=== PATIENT | male | born 1945 | race Caucasian/White ===

== ENCOUNTER 2018-06-21 18:32 | Emergency (ER) | payer MEDICARE, OTHER ==
[2018-06-21 18:44] VITALS: RESP 18
[2018-06-21] MEDS ORDERED: methylPREDNISolone SOD SUCCI 125 MG/2 ML VIAL IV STA (18:57)
[2018-06-21] MEDS ORDERED: FAMOTIDINE 20 MG/2 ML VIAL IV STA (18:57)
--- NOTE | 2018-06-21 19:16 | ED ---
Allergic Reaction HPI - General Chief complaint: Allergic Reaction Stated complaint: BEE STING, ALLERGIC REACTION Time Seen by Provider: 06/21/18 18:53 Source: patient, RN notes reviewed Mode of arrival: wheelchair Limitations: no limitations - History of Present Illness Initial Comments: This a 73-year-old male presents emergency Department with chief complaint of a bee sting to his left hand. Patient states that he was stung approximately one hour prior arrival. Patient states that every time he said bee stings in the past that he gets in reaction and the nature of nausea, localized swelling. Patient states he has an EpiPen but states that it's 3 years old and did not use it. He states he has never had to use an EpiPen for ALLERGIC reaction. Patient states that he's had reaction to Benadryl in the past so he states that he is ALLERGIC to Benadryl. Patient did not take anything else for the symptoms. Patient denies any chest pain, headache, dizziness, fever, chills, difficult breathing comfortably swelling. - Related Data Previous Rx's Medication Instructions Recorded predniSONE 50 mg PO DAILY #3 tab 06/21/18 Allergies Allergy/AdvReac Type Severity Reaction Status Date / Time bee venom protein (honey bee) Allergy Swelling Verified 06/21/18 18:39 Review of Systems ROS Statement: Those systems with pertinent positive or pertinent negative responses have been documented in the HPI. ROS Other: All systems not noted in ROS Statement are negative. Past Medical History Past Medical History: Renal Disease, Thyroid Disorder Additional Past Medical History / Comment(s): klippel feityson (vasacluar disease) History of Any Multi-Drug Resistant Organisms: None Reported Past Surgical History: Orthopedic Surgery, Tonsillectomy Additional Past Surgical History / Comment(s): bone scraping from hip bone to hip bone, 2 skin graphs Past Psychological History: No Psychological Hx Reported Smoking Status: Former smoker Past Alcohol Use History: None Reported Past Drug Use History: None Reported General Exam Limitations: no limitations General appearance: alert, in no apparent distress Head exam: Present: atraumatic, normocephalic, normal inspection ENT exam: Present: normal exam, normal oropharynx, mucous membranes moist Neck exam: Present: normal inspection. Absent: tenderness, meningismus, lymphadenopathy Respiratory exam: Present: normal lung sounds bilaterally. Absent: respiratory distress, wheezes, rales, rhonchi, stridor Cardiovascular Exam: Present: regular rate, normal rhythm, normal heart sounds. Absent: systolic murmur, diastolic murmur, rubs, gallop, clicks Skin exam: Present: warm, dry, intact, normal color, rash (Left hand there is small area of erythema with centralized lesion where he locates a bee sting.) Course Vital Signs 06/21/18 06/21/18 18:39 19:25 Temperature 98.7 F Pulse Rate 89 83 Respiratory 18 18 Rate Blood Pressure 138/80 121/63 O2 Sat by Pulse 96 96 Oximetry Medical Decision Making - Medical Decision Making 73-year-old male presented unresponsive, with chief complaint of ALLERGIC reaction. Patient was given Solu-Medrol, Pepcid has had no worsening retractions. He states he does feel improved. Patient had no definitive renal difficulty swelling. Patient refuses Benadryl as he states he is ALLERGIC to it. Patient we discharged with prednisone for 3 days and return for any worsening symptoms. Disposition Clinical Impression: Allergic reaction to insect sting Disposition: HOME SELF-CARE Condition: Stable Instructions: Insect Bite or Sting (ED) Additional Instructions: Please return to the Emergency Department if symptoms worsen or any other concerns. Prescriptions: predniSONE 50 mg PO DAILY #3 tab Is patient prescribed a controlled substance at d/c from ED?: No Referrals: Nonstaff,Physician [Primary Care Provider] - 1-2 days Time of Disposition: 20:22
[2018-06-21 21:35] VITALS: BP 153/78; PULSE 74; TEMP 97.4
== END 2018-06-21 21:35 | disposition home or self-care (01) ==
LOC: EC 18:32
DX: T63.441A Toxic effect of venom of bees, accidental (unintentional), initial encounter (principal); Z87.891 Personal history of nicotine dependence; Z91.030 Bee allergy status; Z88.8 Allergy status to other drugs, medicaments and biological substances
CPT/HCPCS: 99283; 96374; 96375; J2930

== ENCOUNTER 2018-07-15 21:41 | Emergency (ER) | payer MEDICARE, OTHER ==
[2018-07-15 22:02] VITALS: BP 144/79; PULSE 81; RESP 18; TEMP 98.1
--- NOTE | 2018-07-15 22:25 | ED ---
Lower Extremity Injury HPI - General Chief Complaint: Extremity Injury, Lower Stated Complaint: knee pain Time Seen by Provider: 07/15/18 22:16 Source: patient Mode of arrival: wheelchair Limitations: no limitations - History of Present Illness Initial Comments: This a 73-year-old male past medical history of Klippel-felds who presents today for cc of left knee pain s/p twisting knee earlier today. Pt states that earlier today he was walking around his table, he has significant left LE edema (due to complications from klippel felds for which he is following with PCP-pt denies changes) this causes him to drag foot occasionally. He did not lift foot high enough and he went to turn when felt his knee pop, he stated he think it dislocated medially and he has done this before. He stated it felt like it popped right back in, but this time unlike dislocations in the past he thought he heard a tear. Pt was concerned for ligament injury so he presented to the ER today. Pt denies posterior dislocation, numbness, tingling, loss sensation, or muscle weakness of the left LE. Pt was able to fully weight bear and ambulate. Patient did admit to tenderness over the medial aspect of the knee. As well as some increased swelling to the medial aspect of the knee. Patient took 2 of his prescribed Falkner for pain management, for which he stated helped tremendously. Upon arrival to emergency department patient's vital signs stable. - Related Data Home Medications Medication Instructions Recorded Confirmed Cholecalciferol [Vitamin D3] 1,000 unit PO DAILY 07/15/18 07/15/18 Hydrocodone/Acetaminophen [Falkner 1 tab PO Q6H PRN 07/15/18 07/15/18 10-325] Levothyroxine Sodium [Synthroid] 250 mcg PO DAILY 07/15/18 07/15/18 Penicillin V Potassium [Pen Vee K] 1,000 mg PO BID 07/15/18 07/15/18 Ranitidine HCl [Zantac] 300 mg PO DAILY 07/15/18 07/15/18 Allergies Allergy/AdvReac Type Severity Reaction Status Date / Time bee venom protein (honey bee) Allergy Swelling Verified 07/15/18 22:53 Review of Systems ROS Statement: Those systems with pertinent positive or pertinent negative responses have been documented in the HPI. ROS Other: All systems not noted in ROS Statement are negative. Constitutional: Denies: fever, chills ENT: Denies: ear pain, throat pain Respiratory: Denies: cough, dyspnea, wheezes, hemoptysis, stridor Cardiovascular: Denies: chest pain, palpitations Endocrine: Denies: fatigue Gastrointestinal: Denies: abdominal pain, nausea, vomiting Genitourinary: Denies: urgency, dysuria Musculoskeletal: Reports: joint swelling, arthralgia. Denies: back pain Skin: Denies: rash, lesions Neurological: Denies: headache, numbness, paresthesias, confusion, abnormal gait Past Medical History Past Medical History: Renal Disease, Thyroid Disorder Additional Past Medical History / Comment(s): klippel feils (vasacluar disease) History of Any Multi-Drug Resistant Organisms: None Reported Past Surgical History: Orthopedic Surgery, Tonsillectomy Additional Past Surgical History / Comment(s): bone scraping from hip bone to hip bone, 2 skin graphs Past Psychological History: No Psychological Hx Reported Smoking Status: Former smoker Past Alcohol Use History: None Reported Past Drug Use History: None Reported General Exam - General Exam Comments Initial Comments: General: The patient is awake and alert, in no distress, and does not appear acutely ill. Eye: Pupils are equal, round and reactive to light, extra-ocular movements are intact. No nystagmus. There is normal conjunctiva bilaterally. No signs of icterus. Ears, nose, mouth and throat: There are moist mucous membranes and no oral lesions. Cardiovascular: There is a regular rate and rhythm. No murmur, rub or gallop is appreciated. Respiratory: Lungs are clear to auscultation, respirations are non-labored, breath sounds are equal. No wheezes, stridor, rales, or rhonchi. Musculoskeletal: Full ROM at the knees b/l with flexion and extension, without tenderness. normal ROM at ankle and hips b/l. There are no obvious deformities of the left LE. Strength 5/5 with these movements. Sensation intact of LE to light tough. DP pulses equal bilaterally 2+. Pt has left LE edema pt states this has been his baseline. There are varicose veins cover UE and LE b/l. Crepitus noted upon left knee ROM, no increased laxity. Neurological: A&O x 3. CN II-XII intact, There are no obvious motor or sensory deficits. Coordination appears grossly intact. Speech is normal. Skin: Skin is warm and dry and no rashes or lesions are noted. Psychiatric: Cooperative, appropriate mood & affect, normal judgment. Limitations: no limitations Course Vital Signs 07/15/18 22:00 Temperature 98.1 F Pulse Rate 81 Respiratory 18 Rate Blood Pressure 144/79 O2 Sat by Pulse 95 Oximetry Medical Decision Making - Medical Decision Making XR of right knee revealed no acute fracture or dissipation. There were chronic changes evident mostly degenerative. Patient neurovascularly intact. Compartments soft and compressible. Given history and medial soft tissue swelling of concern for MCL injury. Patient is placed in a knee immobilizer. Pt received prescription for crutches. Patient was instructed to continue to use his Falkner for pain management. Denied pain at this time. Case discussed in detail Dr. Parry at this time feel patient will benefit from orthopedic surgery follow-up for further evaluation treatment. Patient agrees with plan. Patient denies questions at this time. Patient instructed to return versus per minute for worsening pain. Patient discharged in stable condition. Disposition Clinical Impression: Left knee pain, Left knee sprain Disposition: HOME SELF-CARE Condition: Good Instructions: Knee Sprain (ED) Additional Instructions: Please use home medication as discussed. Please follow-up with orthopedic surgery in the next 1-2 days for further evaluation and treatment. Please return to emergency room if the symptoms increase or worsen or for any other concerns, as discussed. Is patient prescribed a controlled substance at d/c from ED?: No Referrals: Nonstaff,Physician [Primary Care Provider] - 1-2 days Bryant Medrano DO [Doctor of Osteopathic Medicine] - 1-2 days Time of Disposition: 00:25
--- NOTE | 2018-07-16 00:19 | XR ---
EXAM: XR Left Knee, 3 views CLINICAL HISTORY: ITS.REASON XR Reason: Pain TECHNIQUE: Three views of the left knee. COMPARISON: No relevant prior studies available. FINDINGS: Bones/joints: No acute fracture. No dislocation. Meniscal chondrocalcinosis. There is also degenerative joint space narrowing. Osteopenia. Soft tissues: Extensive soft tissue calcifications, likely vascular. IMPRESSION: No fracture. Degeneration and meniscal chondrocalcinosis
== END 2018-07-16 00:40 | disposition home or self-care (01) ==
LOC: EC 21:41
DX: S83.92XA Sprain of unspecified site of left knee, initial encounter (principal); Z79.899 Other long term (current) drug therapy; Z91.030 Bee allergy status; Z87.891 Personal history of nicotine dependence; X50.1XXA Overexertion from prolonged static or awkward postures, initial encounter; Y93.01 Activity, walking, marching and hiking
CPT/HCPCS: 99283; 73562; L1830 ×2

== ENCOUNTER 2018-08-16 20:33 | Emergency (ER) | payer MEDICARE, OTHER ==
[2018-08-16 20:39] VITALS: TEMP 97
--- NOTE | 2018-08-16 22:25 | ED ---
General Adult HPI - General Chief complaint: Skin/Abscess/Foreign Body Stated complaint: Arm pain Time Seen by Provider: 08/16/18 21:33 Source: patient Mode of arrival: ambulatory Limitations: no limitations - History of Present Illness Initial comments: This patient is a 73-year-old man who presents to have evaluation of his left lower leg. The patient relates that he has been having approximately one year of intermittent pains to the left lower leg. The patient states that things started approximately one year ago, he believes that he was bitten by a brown recluse spider. The patient did not see a spider bite. The patient went to [facility] where he had a procedure that sounds like an incision and drainage performed. Since that time he has had leg infections that per his description sound like cellulitis, and he has had multiple courses of vancomycin. The patient reports that he had gone for drive today and had a couple of episodes of left leg pain distal to where this I&D was performed. He states that the leg also seemed to be hard distal to that site. The patient has not had systemic symptoms, including no fever or chills. No palpitations or chest pain area no dyspnea. He is not complaining of leg warmth or redness. No drainage. In addition, the patient had an ultrasound of the leg and a surgical consultation about 2 weeks ago for these intermittent pains. Not able to state what was found. -: hour(s) Location: left, lower extremity Radiation: non-radiation Quality: aching Consistency: intermittent Improves with: none Worsens with: none Associated Symptoms: denies other symptoms Treatments Prior to Arrival: none - Related Data Home Medications Medication Instructions Recorded Confirmed Cholecalciferol [Vitamin D3] 1,000 unit PO DAILY 07/15/18 07/15/18 Hydrocodone/Acetaminophen [[place] 1 tab PO Q6H PRN 07/15/18 07/15/18 10-325] Levothyroxine Sodium [Synthroid] 250 mcg PO DAILY 07/15/18 07/15/18 Penicillin V Potassium [Pen Vee K] 1,000 mg PO BID 07/15/18 07/15/18 Ranitidine HCl [Zantac] 300 mg PO DAILY 07/15/18 07/15/18 Previous Rx's Medication Instructions Recorded Ibuprofen [Motrin] 600 mg PO Q8HR PRN #15 tab 08/17/18 Allergies Allergy/AdvReac Type Severity Reaction Status Date / Time bee venom protein (honey bee) Allergy Swelling Verified 08/16/18 20:39 Review of Systems ROS Statement: Those systems with pertinent positive or pertinent negative responses have been documented in the HPI. ROS Other: All systems not noted in ROS Statement are negative. Constitutional: Denies: fever, chills, weakness Respiratory: Denies: dyspnea Cardiovascular: Denies: chest pain, palpitations, edema Musculoskeletal: Reports: as per HPI, other (Left leg pain) Skin: Denies: rash, lesions, change in color Neurological: Denies: weakness, numbness, paresthesias Past Medical History Past Medical History: Renal Disease, Thyroid Disorder Additional Past Medical History / Comment(s): klippreema bedoya (vasacluar disease) History of Any Multi-Drug Resistant Organisms: None Reported Past Surgical History: Orthopedic Surgery, Tonsillectomy Additional Past Surgical History / Comment(s): bone scraping from hip bone to hip bone, 2 skin graphs Past Psychological History: No Psychological Hx Reported Smoking Status: Former smoker Past Alcohol Use History: None Reported Past Drug Use History: None Reported General Exam Limitations: no limitations General appearance: alert, in no apparent distress Cardiovascular Exam: Present: other (Strong pedal pulse and normal capillary refill to left leg) Extremities exam: Present: full ROM, pedal edema, other (There is mild pitting edema bilaterally. There is tenderness to the left lower leg, medial aspect. No palpable cord or Homans sign). Absent: joint swelling, calf tenderness Neurological exam: Absent: motor sensory deficit Course Vital Signs 08/16/18 20:37 Temperature 97.0 F L Pulse Rate 78 Respiratory 18 Rate Blood Pressure 174/88 O2 Sat by Pulse 95 Oximetry Disposition Clinical Impression: Thrombophlebitis Disposition: HOME SELF-CARE Condition: Fair Instructions: Superficial Thrombophlebitis (ED) Prescriptions: Ibuprofen [Motrin] 600 mg PO Q8HR PRN #15 tab PRN Reason: Pain Is patient prescribed a controlled substance at d/c from ED?: No Referrals: Roosevelt Goodson MD [STAFF PHYSICIAN] - 1-2 days Marito Cruz MD [Medical Doctor] - 1-2 days
--- NOTE | 2018-08-17 00:28 | US ---
EXAMINATION TYPE: US venous doppler duplex LE LT DATE OF EXAM: 08/16/2018 10:14 PM COMPARISON: NONE CLINICAL HISTORY: Pain. Left leg pain and swelling x 16 months SIDE PERFORMED: Left TECHNIQUE: The lower extremity deep venous system is examined utilizing real time linear array sonog didier with graded compression, doppler sonography and color-flow sonography. VESSELS IMAGED: External Iliac Vein (EIV) Common Femoral Vein Deep Femoral Vein Greater Saphenous Vein * Femoral Vein Popliteal Vein Small Saphenous Vein * Proximal Calf Veins (* superficial vessels) Left Leg: Appears negative for DVT, medial calf at patient's area of concern: thrombus seen within s uperficial vein, minimal flow seen with partial compression. IMPRESSION: There is minimal superficial vein thrombosis in the calf. No evidence of deep venous thro mbosis.
[2018-08-17] MEDS: IBUPROFEN 400 MG TAB PO STA ×2 (01:37→01:39)
[2018-08-17 01:38] VITALS: BP 141/91; PULSE 82; RESP 16
== END 2018-08-17 01:40 | disposition home or self-care (01) ==
LOC: EC 20:33
DX: I80.02 Phlebitis and thrombophlebitis of superficial vessels of left lower extremity (principal); E07.9 Disorder of thyroid, unspecified; Z87.891 Personal history of nicotine dependence; Z79.899 Other long term (current) drug therapy; Z91.030 Bee allergy status; Z53.29 Procedure and treatment not carried out because of patient's decision for other reasons
CPT/HCPCS: 99283